=== PATIENT | female | born 1990 | race African-American/Black ===

== ENCOUNTER 2017-05-15 01:20 | Emergency (ER) | payer MEDICAID, MEDICARE ==
[~2017-05-15] VITALS: Ht 167.6 cm; Wt 102.0 kg
[~2017-05-15 01:20] MED LIST: CITA10TA16 PO; MEDR150D9 IM; TRAZ-129 PO
[2017-05-15 08:55] LABS: CLARITY URINE CLEAR (CLEAR); COLOR URINE YELLOW (YELLOW); GLUCOSE URINE NEGATIVE (NEGATIVE); KETONES URINE NEGATIVE (NEGATIVE); LEUKOCYTE ESTERASE URINE NEGATIVE (NEGATIVE); NITRITE URINE NEGATIVE (NEGATIVE); OCCULT BLOOD URINE NEGATIVE (NEGATIVE); PH URINE 5.5 (4.5-8.0); PROTEIN URINE NEGATIVE (NEGATIVE); SPECIFIC GRAVITY URINE 1.037 (1.005-1.030)
[2017-05-15 10:00] LABS: HCG SCREEN NEGATIVE
[2017-05-15 11:17] VITALS: BP 119/81
[2017-05-18 04:18] LABS: CHLAMYDIA TRACHOMATIS NAA Negative (Negative); NEISSERIA GONORRHOEAE NAA Negative (Negative)
== END 2017-05-15 11:31 | disposition home or self-care (01) ==
LOC: ER 01:20
DX: N76.0 Acute vaginitis (principal); Z88.6 Allergy status to analgesic agent; Z88.5 Allergy status to narcotic agent; Z91.018 Allergy to other foods; Z98.890 Other specified postprocedural states
CPT/HCPCS: 81003; 84703; 87210; 87491; 87591; 99284

== ENCOUNTER 2017-11-04 10:36 | Emergency (ER) | payer MEDICARE ==
[~2017-11-04] VITALS: Ht 162.6 cm; Wt 74.0 kg
[2017-11-04] MEDS ORDERED: ONDANSETRON HCL 4MG/2ML VIAL IV STA (14:33)
[2017-11-04] MEDS ORDERED: SODIUM CHLORIDE 0.9% 1,000 ML IV ONE (14:33)
[2017-11-04 15:02] LABS: CHLORIDE 107 mEq/L (98-107)
[2017-11-04 15:05] LABS: BASOPHILS % 0.9 % (0.0-2.0); EOSINOPHILS % 1.2 % (0.0-5.0); HEMATOCRIT. 36.1 % (36.0-48.0); HEMOGLOBIN. 11.8 g/dL (12.0-16.0); LYMPHOCYTES % 40.3 % (20.0-50.0); MEAN CORPUSCULAR HEMOGLOBIN 28.9 pg (28.0-32.0); MEAN CORPUSCULAR VOLUME 88.6 fL (81.0-99.0); MEAN PLATELET VOLUME 8.3 fl (7.4-10.4); MONOCYTES % 6.5 % (2.0-8.0); NEUTROPHILS % 51.1 % (40.0-76.0); PLATELET 257 x1000/uL (130-400); RED BLOOD CELL COUNT 4.07 mill/uL (4.2-5.4); RED CELL DISTRIBUTION WIDTH 13.4 % (11.6-14.6)
[2017-11-04 15:15] LABS: HCG SCREEN NEGATIVE
[2017-11-04 15:17] LABS: CLARITY URINE CLOUDY (CLEAR); COLOR URINE YELLOW (YELLOW); KETONES URINE TRACE (NEGATIVE); LEUKOCYTE ESTERASE URINE NEGATIVE (NEGATIVE); NITRITE URINE NEGATIVE (NEGATIVE); OCCULT BLOOD URINE NEGATIVE (NEGATIVE); PH URINE 5.5 (4.5-8.0); PROTEIN URINE TRACE (NEGATIVE); SPECIFIC GRAVITY URINE 1.037 (1.005-1.030)
[2017-11-04 18:54] VITALS: BP 110/70
== END 2017-11-04 19:07 | disposition home or self-care (01) ==
LOC: ER 11:10
DX: J06.9 Acute upper respiratory infection, unspecified (principal); Z88.6 Allergy status to analgesic agent; Z88.5 Allergy status to narcotic agent; Z91.018 Allergy to other foods; Z98.890 Other specified postprocedural states
CPT/HCPCS: 36415; 71045; 80053; 81003; 84703; 85025; 87804; 96361; 96374; 99285; J2405; J7030; Z7610

== ENCOUNTER 2017-11-08 10:17 | Emergency (ER) | payer MEDICARE ==
[~2017-11-08] VITALS: Ht 165.1 cm; Wt 68.0 kg
[2017-11-08] MEDS ORDERED: ONDANSETRON 4MG ODT PO STA (20:42)
[2017-11-08] MEDS ORDERED: DICYCLOMINE 10 MG/5 ML ORAL SYR PO STA (20:42)
[2017-11-08 21:09] LABS: BASOPHILS % 0.9 % (0.0-2.0); EOSINOPHILS % 1.3 % (0.0-5.0); HEMATOCRIT. 34.4 % (36.0-48.0); HEMOGLOBIN. 11.1 g/dL (12.0-16.0); MEAN CORPUSCULAR HEMOGLOBIN 28.8 pg (28.0-32.0); MEAN CORPUSCULAR VOLUME 88.9 fL (81.0-99.0); MEAN PLATELET VOLUME 8.1 fl (7.4-10.4); MONOCYTES % 10.8 % (2.0-8.0); PLATELET 256 x1000/uL (130-400); RED BLOOD CELL COUNT 3.87 mill/uL (4.2-5.4); RED CELL DISTRIBUTION WIDTH 13.4 % (11.6-14.6)
[2017-11-08 21:10] LABS: CLARITY URINE CLEAR (CLEAR); COLOR URINE YELLOW (YELLOW); KETONES URINE TRACE (NEGATIVE); LEUKOCYTE ESTERASE URINE NEGATIVE (NEGATIVE); NITRITE URINE NEGATIVE (NEGATIVE); OCCULT BLOOD URINE NEGATIVE (NEGATIVE); PH URINE 5.5 (4.5-8.0); PROTEIN URINE NEGATIVE (NEGATIVE); SPECIFIC GRAVITY URINE 1.035 (1.005-1.030)
[2017-11-08 21:14] LABS: CHLORIDE 107 mEq/L (98-107)
[2017-11-08 21:20] LABS: HCG SCREEN NEGATIVE
[2017-11-08 22:25] VITALS: BP 131/77
== END 2017-11-08 22:28 | disposition home or self-care (01) ==
LOC: ER 10:22
DX: K52.9 Noninfective gastroenteritis and colitis, unspecified (principal); D64.9 Anemia, unspecified; J30.9 Allergic rhinitis, unspecified; Z88.0 Allergy status to penicillin; Z88.5 Allergy status to narcotic agent
CPT/HCPCS: 36415; 80053; 81003; 83690; 84703; 85025; 99284; Q0162; Z7610

== ENCOUNTER 2018-07-16 17:45 | Emergency (ER) | payer MEDICAID, MEDICARE ==
[~2018-07-16] VITALS: Ht 167.6 cm; Wt 103.7 kg
[~2018-07-16 17:45] MED LIST changes: -TRAZ-129 PO; +TRAZ-212 PO
[2018-07-16] MEDS ORDERED: FAMOTIDINE 20MG/2ML VIAL IV STA (23:31)
[2018-07-16] MEDS ORDERED: SODIUM CHLORIDE 0.9% 1,000 ML IV ONE (23:31)
[2018-07-16] MEDS ORDERED: ONDANSETRON HCL 4MG/2ML INJ IV STA (23:31)
[2018-07-17 01:05] LABS: CHLORIDE 107 mEq/L (98-107)
[2018-07-17 01:06] LABS: CLARITY URINE CLOUDY (CLEAR); COLOR URINE YELLOW (YELLOW); KETONES URINE TRACE (NEGATIVE); LEUKOCYTE ESTERASE URINE NEGATIVE (NEGATIVE); NITRITE URINE NEGATIVE (NEGATIVE); OCCULT BLOOD URINE NEGATIVE (NEGATIVE); PROTEIN URINE NEGATIVE (NEGATIVE); SPECIFIC GRAVITY URINE 1.027 (1.005-1.030)
[2018-07-17 01:14] LABS: HEMATOCRIT. 32.8 % (36.0-48.0); HEMOGLOBIN. 10.9 g/dL (12.0-16.0); MEAN CORPUSCULAR HEMOGLOBIN 29.6 pg (28.0-32.0); MEAN CORPUSCULAR VOLUME 88.9 fL (81.0-99.0); MEAN PLATELET VOLUME 9.2 fl (7.4-10.4); NEUTROPHILS % 37.1 % (40.0-76.0); PLATELET 234 x1000/uL (130-400); RED BLOOD CELL COUNT 3.69 mill/uL (4.2-5.4); RED CELL DISTRIBUTION WIDTH 13.2 % (11.6-14.6)
[2018-07-17 01:15] LABS: BASOPHILS % 0.6 % (0.0-2.0); EOSINOPHILS % 0.8 % (0.0-5.0); LYMPHOCYTES % 52.4 % (20.0-50.0); MONOCYTES % 9.1 % (2.0-8.0)
[2018-07-17] MEDS ORDERED: KETOROLAC 30MG/ML VIAL IV ONE (02:15)
[2018-07-17 03:19] VITALS: BP 118/75
== END 2018-07-17 03:23 | disposition home or self-care (01) ==
LOC: ER 17:45
DX: N39.0 Urinary tract infection, site not specified (principal); D64.9 Anemia, unspecified; E87.6 Hypokalemia; E46 Unspecified protein-calorie malnutrition; Z68.36 Body mass index [BMI] 36.0-36.9, adult; Z88.5 Allergy status to narcotic agent; Z88.0 Allergy status to penicillin; Z91.018 Allergy to other foods; Z98.890 Other specified postprocedural states
CPT/HCPCS: 36415; 80053; 81003; 81025; 83690; 85025; 96361; 96374; 96375; 99284; J1885; J2405; J3490; J7030

== ENCOUNTER 2019-07-19 15:49 | Emergency (ER) | payer MEDICAID, MEDICARE ==
[~2019-07-19] VITALS: Ht 167.6 cm; Wt 118.6 kg
[~2019-07-19 15:49] MED LIST changes: -TRAZ-212 PO; +TRAZ-251 PO
[2019-07-19 18:17] LABS: CLARITY URINE CLEAR (CLEAR); COLOR URINE YELLOW (YELLOW); KETONES URINE TRACE (NEGATIVE); LEUKOCYTE ESTERASE URINE NEGATIVE (NEGATIVE); NITRITE URINE NEGATIVE (NEGATIVE); OCCULT BLOOD URINE NEGATIVE (NEGATIVE); PH URINE 5.5 (4.5-8.0); PROTEIN URINE NEGATIVE (NEGATIVE); SPECIFIC GRAVITY URINE 1.026 (1.005-1.030); UROBILINOGEN URINE 0.2 E.U./dL (0.2-1.0)
[2019-07-19 18:18] LABS: BASOPHILS % 0.8 % (0.0-2.0); EOSINOPHILS % 1.8 % (0.0-5.0); HEMATOCRIT. 30.8 % (36.0-48.0); HEMOGLOBIN. 10.2 g/dL (12.0-16.0); LYMPHOCYTES % 38.8 % (20.0-50.0); MEAN CORPUSCULAR HEMOGLOBIN 29.4 pg (28.0-32.0); MEAN CORPUSCULAR VOLUME 88.9 fL (81.0-99.0); MEAN PLATELET VOLUME 7.7 fl (7.4-10.4); MONOCYTES % 9.3 % (2.0-8.0); NEUTROPHILS % 49.3 % (40.0-76.0); PLATELET 282 x1000/uL (130-400); RED BLOOD CELL COUNT 3.47 mill/uL (4.2-5.4); RED CELL DISTRIBUTION WIDTH 13.8 % (11.6-14.6)
[2019-07-19 18:21] LABS: CHLORIDE 106 mEq/L (98-107)
[2019-07-19 18:44] LABS: B-HCG QUANTITATIVE 2514 mIU/mL (<3)
[2019-07-19 19:30] VITALS: BP 107/54
== END 2019-07-19 21:02 | disposition home or self-care (01) ==
LOC: ER 15:49
DX: O26.891 Other specified pregnancy related conditions, first trimester (principal); Z3A.00 Weeks of gestation of pregnancy not specified; Z98.890 Other specified postprocedural states; Z88.5 Allergy status to narcotic agent; Z88.0 Allergy status to penicillin; Z91.018 Allergy to other foods
CPT/HCPCS: 36415; 76856; 81003; 84702; 86850; 86900; 99284

== ENCOUNTER 2019-07-23 06:58 | Emergency (ER) | payer MEDICARE ==
[~2019-07-23] VITALS: Ht 292.1 cm; Wt 106.0 kg
[2019-07-23 08:15] VITALS: BP 124/47
[2019-07-23 09:23] LABS: CLARITY URINE CLEAR (CLEAR); COLOR URINE YELLOW (YELLOW); KETONES URINE NEGATIVE (NEGATIVE); LEUKOCYTE ESTERASE URINE NEGATIVE (NEGATIVE); NITRITE URINE NEGATIVE (NEGATIVE); OCCULT BLOOD URINE NEGATIVE (NEGATIVE); PH URINE 6.5 (4.5-8.0); PROTEIN URINE NEGATIVE (NEGATIVE); SPECIFIC GRAVITY URINE 1.019 (1.005-1.030)
== END 2019-07-23 12:14 | disposition home or self-care (01) ==
LOC: ER 06:58
DX: O26.891 Other specified pregnancy related conditions, first trimester (principal); R10.2 Pelvic and perineal pain; J45.909 Unspecified asthma, uncomplicated; Z3A.01 Less than 8 weeks gestation of pregnancy; Z98.890 Other specified postprocedural states; Z88.5 Allergy status to narcotic agent; Z88.0 Allergy status to penicillin; Z91.018 Allergy to other foods
CPT/HCPCS: 36415; 76801; 81003; 81025; 84702; 99284

== ENCOUNTER 2019-11-10 23:54 | Emergency (ER) | payer MEDICARE ==
[~2019-11-10] VITALS: Ht 167.6 cm; Wt 68.0 kg
[2019-11-11] MEDS ORDERED: LORATADINE 10MG TABLET PO ONE (00:45)
[2019-11-11] MEDS ORDERED: DIPHENHYDRAMINE 25MG CAPSULE PO ONE (00:45)
[2019-11-11] MEDS ORDERED: IPRATROPIUM/ALBUTEROL 0.5-3(2.5)MG/3ML NEB HHN ONE (01:45)
[2019-11-11] MEDS ORDERED: ACETAMINOPHEN 500MG TABLET PO ONE (03:00)
[2019-11-11 05:00] VITALS: BP 122/79
== END 2019-11-11 05:01 | disposition home or self-care (01) ==
LOC: ER 23:54
DX: O26.892 Other specified pregnancy related conditions, second trimester (principal); Z3A.22 22 weeks gestation of pregnancy; O99.512 Diseases of the respiratory system complicating pregnancy, second trimester; Z98.890 Other specified postprocedural states; Z79.899 Other long term (current) drug therapy; Z88.0 Allergy status to penicillin
CPT/HCPCS: 87070; 87430; 94640; 99284; J7610; Q0163; Z7610

== ENCOUNTER 2020-11-06 17:26 | Emergency (ER) | payer MEDICAID, MEDICARE ==
[~2020-11-06] VITALS: Ht 165.1 cm; Wt 102.0 kg
[2020-11-06 19:14] LABS: CLARITY URINE CLOUDY (CLEAR); COLOR URINE YELLOW (YELLOW); KETONES URINE TRACE (NEGATIVE); LEUKOCYTE ESTERASE URINE 3+ (NEGATIVE); NITRITE URINE POSITIVE (NEGATIVE); OCCULT BLOOD URINE TRACE (NEGATIVE); PH URINE 5.5 (4.5-8.0); PROTEIN URINE TRACE (NEGATIVE); SPECIFIC GRAVITY URINE 1.031 (1.005-1.030)
[2020-11-06] MEDS ORDERED: AZITHROMYCIN 500 MG TABLET PO ONE (19:45)
[2020-11-06] MEDS ORDERED: AZITHROMYCIN 500 MG TABLET PO NR (20:00)
[2020-11-06] MEDS ORDERED: METR500T MT (20:16)
[2020-11-06] MEDS ORDERED: DOXY100C2 MT (20:16)
[2020-11-06] MEDS ORDERED: DIF15 MT (20:31)
[2020-11-06 22:00] VITALS: BP 156/75
[2020-11-09 09:09] LABS: NEISSERIA GONORRHOEAE NAA Negative (Negative)
== END 2020-11-06 22:00 | disposition home or self-care (01) ==
LOC: ER 17:26
DX: N73.0 Acute parametritis and pelvic cellulitis (principal); N39.0 Urinary tract infection, site not specified; H61.22 Impacted cerumen, left ear; J45.909 Unspecified asthma, uncomplicated; Z98.890 Other specified postprocedural states; Z91.09 Other allergy status, other than to drugs and biological substances; Z88.5 Allergy status to narcotic agent; Z88.0 Allergy status to penicillin; Z91.018 Allergy to other foods
CPT/HCPCS: 81003; 87210; 87491; 87591; 99283